=== PATIENT | female | born 1990 | race Two or more races ===

== ENCOUNTER 2018-06-15 14:14 | Emergency (ER) | payer OTHER ==
[~2018-06-15] VITALS: Ht 170.2 cm; Wt 72.6 kg
[2018-06-15 15:39] LABS: BILIRUBIN,URINE NEGATIVE (NEG); CLARITY,URINE CLEAR; COLOR,URINE YELLOW; NITRITE,URINE NEGATIVE (NEG); PH,URINE 6.5; PROTEIN,URINE NEGATIVE (NEG-TRACE); UROBILINOGEN,URINE 0.2 mg/dL (0.2 mg/dL)
[2018-06-15] MEDS ORDERED: FAMOTIDINE 20 MG/2 ML VIAL IVP ONE (15:45)
[2018-06-15] MEDS ORDERED: LIDO:MAALOX 1:1 20 ML SINGLE DOSE. SWSW ONE (15:45)
[2018-06-15 15:48] LABS: BARBITURATES NEG (NEG); BENZODIAZEPINES NEG (NEG); CANNABINOIDS NEG (NEG); COCAINE NEG (NEG); METHADONE NEG (NEG); OPIATES NEG (NEG); PHENCYCLIDINE NEG (NEG)
[2018-06-15 15:54] LABS: AMPHETAMINE/METHAMPHETAMINE NEG (NEG)
[2018-06-15 15:55] LABS: BACTERIA,URINE MODERATE /HPF (0-FEW); RBC,URINE 0 /HPF (0-2); SQUAMOUS EPITHELIAL CELL,UR MOD /LPF
[2018-06-15 16:04] LABS: BASO # 0.1 x10^3/uL (0.0-0.2); BASO % 1 % (0-3); EOS # 0.8 x10^3/uL (0.0-0.7); EOS % 5 % (0-3); HEMATOCRIT 40.5 % (36.0-47.0); HEMOGLOBIN 13.4 g/dL (12.0-15.5); LYMPH % 24 % (24-48); MEAN CORPUSCULAR HEMOGLOBIN 28 pg (25-35); MEAN CORPUSCULAR HGB CONC 33 g/dL (31-37); MEAN CORPUSCULAR VOLUME 85 fL (79-100); MONO # 1.4 x10^3/uL (0.0-1.1); MONO % 8 % (0-9); NEUT # 10.4 x10^3uL (1.8-7.7); NEUT % 63 % (31-73); PLATELET COUNT 440 x10^3/uL (140-400); RED BLOOD COUNT 4.77 x10^6/uL (3.50-5.40); RED CELL DISTRIBUTION WIDTH 13.3 % (11.5-14.5); WHITE BLOOD COUNT 16.7 x10^3/uL (4.0-11.0)
[2018-06-15 16:13] LABS: CALCIUM 8.7 mg/dL (8.5-10.1); CREATININE 0.6 mg/dL (0.6-1.0); GFR 119.9; POTASSIUM 4.1 mmol/L (3.5-5.1)
[2018-06-15 16:19] LABS: ALBUMIN 3.1 g/dL (3.4-5.0); ALBUMIN/GLOBULIN RATIO 0.7 (1.0-1.7); TOTAL BILIRUBIN 0.3 mg/dL (0.2-1.0); TOTAL PROTEIN 7.3 g/dL (6.4-8.2)
--- NOTE | 2018-06-15 16:52 | PHYS DOC ---
Past Medical History Additional Past Medical Histor: gastritis Alcohol Use: Rarely Drug Use: None Adult General Chief Complaint Chief Complaint: ABDOMINAL PAIN HPI HPI Patient is a 27 year old female with a history of gastritis who presents to the ED today complaining of 8 out of 10 epigastric abdominal pain that she states has been going on for 3 days. Patient denies any nausea vomiting. Denies any fever. Denies any hematemesis or melena. Review of Systems Review of Systems Constitutional: Denies fever or chills [] Eyes: Denies change in visual acuity, redness, or eye pain [] HENT: Denies nasal congestion or sore throat [] Respiratory: Denies cough or shortness of breath [] Cardiovascular: No additional information not addressed in HPI [] GI: Reports epigastric abdominal pain, denies nausea, vomiting, bloody stools or diarrhea [] : Denies dysuria or hematuria [] Musculoskeletal: Denies back pain or joint pain [] Integument: Denies rash or skin lesions [] Neurologic: Denies headache, focal weakness or sensory changes [] All other systems were reviewed and found to be within normal limits, except as documented in this note. Current Medications Current Medications Current Medications Medications (Trade) Dose Ordered Sig/Ramesh Start Time Stop Time Status Last Admin Dose Admin Famotidine (Pepcid Vial) 20 mg 1X ONCE 06/15/18 15:45 06/15/18 15:46 DC 06/15/18 15:57 20 MG Info (CONTRAST GIVEN -- Rx MONITORING) 1 each PRN DAILY PRN 06/15/18 17:15 06/17/18 17:14 Iohexol (Omnipaque 300 Mg/ml) 75 ml 1X ONCE 06/15/18 17:15 06/15/18 17:16 DC 06/15/18 17:23 75 ML Multi-Ingredient Mouthwash/Gargle (Gi Cocktail) 20 ml 1X ONCE 06/15/18 15:45 06/15/18 15:46 DC 06/15/18 15:42 20 ML Allergies Allergies Allergies Coded Allergies Type Severity Reaction Last Updated Verified No Known Drug Allergies 06/15/18 No Physical Exam Physical Exam Constitutional: Well developed, well nourished, no acute distress, non-toxic appearance. [] HENT: Normocephalic, atraumatic, bilateral external ears normal, oropharynx moist, no oral exudates, nose normal. [] Eyes: PERRLA, EOMI, conjunctiva normal, no discharge. [] Neck: Normal range of motion, no tenderness, supple, no stridor. [] Cardiovascular:Heart rate regular rhythm, no murmur [] Lungs & Thorax: Bilateral breath sounds clear to auscultation [] Abdomen:Rounded abdomen. Bowel sounds normal, soft, mild tenderness on palpation of the epigastric region, negative mass, slight tenderness on palpation of the right lower quadrant with negative psoas sign, negative obturator sign, no masses, no pulsatile masses. [] Skin: Warm, dry, no erythema, no rash. [] Back: No tenderness, no CVA tenderness. [] Extremities: No tenderness, no cyanosis, no clubbing, ROM intact, no edema. [] Neurologic: Alert and oriented X 3, normal motor function, normal sensory function, no focal deficits noted. [] Psychologic: Affect normal, judgement normal, mood normal. [] Current Patient Data Vital Signs Vital Signs Date Time Temp Pulse Resp B/P (MAP) Pulse Ox O2 Delivery O2 Flow Rate FiO2 06/15/18 18:38 81 17 137/98 (111) 97 Room Air 06/15/18 15:05 98.1 98.1 Lab Values Laboratory Tests Test 06/15/18 15:30 06/15/18 15:31 06/15/18 15:44 Urine Collection Type Unknown Urine Color Yellow Urine Clarity Clear Urine pH 6.5 Urine Specific Stanton 1.025 Urine Protein Negative mg/dL (NEG-TRACE) Urine Glucose (UA) Negative mg/dL (NEG) Urine Ketones (Stick) Negative mg/dL (NEG) Urine Blood Trace (NEG) Urine Nitrite Negative (NEG) Urine Bilirubin Negative (NEG) Urine Urobilinogen Dipstick 0.2 mg/dL (0.2 mg/dL) Urine Leukocyte Esterase Moderate (NEG) Urine RBC 0 /HPF (0-2) Urine WBC 1-4 /HPF (0-4) Urine Squamous Epithelial Cells Mod /LPF Urine Bacteria Moderate /HPF (0-FEW) Urine Mucus Slight /LPF Urine Opiates Screen Neg (NEG) Urine Methadone Screen Neg (NEG) Urine Barbiturates Neg (NEG) Urine Phencyclidine Screen Neg (NEG) Urine Amphetamine/Methamphetamine Neg (NEG) Urine Benzodiazepines Screen Neg (NEG) Urine Cocaine Screen Neg (NEG) Urine Cannabinoids Screen Neg (NEG) Urine Ethyl Alcohol Neg (NEG) POC Urine HCG, Qualitative Hcg negative (Negative) White Blood Count 16.7 x10^3/uL (4.0-11.0) H Red Blood Count 4.77 x10^6/uL (3.50-5.40) Hemoglobin 13.4 g/dL (12.0-15.5) Hematocrit 40.5 % (36.0-47.0) Mean Corpuscular Volume 85 fL (79-100) Mean Corpuscular Hemoglobin 28 pg (25-35) Mean Corpuscular Hemoglobin Concent 33 g/dL (31-37) Red Cell Distribution Width 13.3 % (11.5-14.5) Platelet Count 440 x10^3/uL (140-400) H Neutrophils (%) (Auto) 63 % (31-73) Lymphocytes (%) (Auto) 24 % (24-48) Monocytes (%) (Auto) 8 % (0-9) Eosinophils (%) (Auto) 5 % (0-3) H Basophils (%) (Auto) 1 % (0-3) Neutrophils # (Auto) 10.4 x10^3uL (1.8-7.7) H Lymphocytes # (Auto) 4.0 x10^3/uL (1.0-4.8) Monocytes # (Auto) 1.4 x10^3/uL (0.0-1.1) H Eosinophils # (Auto) 0.8 x10^3/uL (0.0-0.7) H Basophils # (Auto) 0.1 x10^3/uL (0.0-0.2) Sodium Level 138 mmol/L (136-145) Potassium Level 4.1 mmol/L (3.5-5.1) Chloride Level 103 mmol/L (98-107) Carbon Dioxide Level 26 mmol/L (21-32) Anion Gap 9 (6-14) Blood Urea Nitrogen 12 mg/dL (7-20) Creatinine 0.6 mg/dL (0.6-1.0) Estimated GFR (Cockcroft-Gault) 119.9 BUN/Creatinine Ratio 20 (6-20) Glucose Level 136 mg/dL (70-99) H Calcium Level 8.7 mg/dL (8.5-10.1) Total Bilirubin 0.3 mg/dL (0.2-1.0) Aspartate Amino Transferase (AST) 35 U/L (15-37) Alanine Aminotransferase (ALT) 59 U/L (14-59) Alkaline Phosphatase 87 U/L (46-116) Total Protein 7.3 g/dL (6.4-8.2) Albumin 3.1 g/dL (3.4-5.0) L Albumin/Globulin Ratio 0.7 (1.0-1.7) L Lipase 297 U/L (73-393) Ethyl Alcohol Level < 10 mg/dL (0-10) Laboratory Tests 06/15/18 15:44 Laboratory Tests 06/15/18 15:44 EKG EKG [] Radiology/Procedures Radiology/Procedures []PROCEDURE: CT ABD PELV W/ IV CONTRST ONLY CT abdomen and pelvis with contrast Clinical Indication: Abdominal pain COMPARISON: None TECHNIQUE: Multiple contiguous axial images were obtained throughout the abdomen and pelvis with the use of IV contrast. Axial images were reformatted into coronal and sagittal planes. 75 mL Omni 350 was administered. Abdomen findings: Hepatic steatosis. The liver is enlarged measuring 21.6 cm. The gallbladder is mildly contracted but without obvious abnormality. The pancreas is normal in appearance. The spleen is not seen. The bilateral adrenal glands are normal in appearance. The kidneys are unremarkable. There is no significant mesenteric or retroperitoneal adenopathy identified. There is no evidence of free intraperitoneal fluid or pneumoperitoneum. Moderate colonic stool. Visualized portions of the bowel are otherwise grossly unremarkable. Normal appendix. Pelvis findings: The bladder and distal ureters are unremarkable. There is no significant pelvic ascites. No significant iliac or inguinal adenopathy is identified. No acute osseous abnormality. IMPRESSION: 1. Moderate colonic stool. 2. Hepatomegaly with steatosis. 3. The spleen is not identified. There are no surgical clips in its expected location. Correlate with patient's history. Patient may have congenital asplenia. Electronically signed by: Hilario Louis MD (06/15/2018 6:58 PM) [facility] DICTATED and SIGNED BY: HILARIO LOUIS MD DATE: 06/15/18 6386 Course & Med Decision Making Course & Med Decision Making Pertinent Labs and Imaging studies reviewed. (See chart for details) This is a 27-year-old female patient presented to the ED today complaining of abdominal pain, history of gastritis. Negative urine hCG, urine noted for moderate amount of leukocytes, CBC with a WBC of 16.7, CMP with no acute findings. CT of the abdomen and pelvic is negative for any acute findings, noted for constipation. Patient was discharged with MiraLAX, discharged with cephalexin. Given prescription for Nexium for gastritis/acid reflex. Patient states omeprazole is not working for her. Dragon Disclaimer Dragon Disclaimer This electronic medical record was generated, in whole or in part, using a voice recognition dictation system. Departure Departure Impression: Primary Impression: Gastritis Additional Impressions: Urinary tract infection Constipation Disposition: HOME, SELF-CARE Condition: STABLE Referrals: NO PCP (PCP) DOMINGO CASTAÑEDA MD follow up in 1 week Patient Instructions: Constipation, Adult, Gastritis, Adult, [id number], Urinary Tract Infection Additional Instructions: You were evaluated in the emergency room for chronic gastritis, urinary tract infection and constipation. Take the prescribed medications as ordered, ensure you complete your antibiotics. Follow-up with your own doctor in 1-2 weeks. Scripts Polyethylene Glycol 3350 (MIRALAX) 17 Gm Powd.pack 1 PACKET PO DAILY, #30 PACKET 3 Refills Prov: JIMENA FARIA APRN 06/15/18 Esomeprazole Magnesium (NEXIUM CAPSULE) 20 Mg Capsule.dr 1 CAP PO DAILY, #30 CAP 2 Refills Prov: JIMENA FARIA APRN 06/15/18 Cephalexin (CEPHALEXIN) 500 Mg Tablet 1 TAB PO BID, #14 TAB Prov: JIMENA FARIA APRN 06/15/18 Problem Qualifiers Primary Impression: Gastritis Gastritis type: unspecified gastritis Chronicity: chronic Gastritis bleeding: without bleeding Qualified Codes: K29.50 - Unspecified chronic gastritis without bleeding Additional Impressions: Urinary tract infection Urinary tract infection type: site unspecified Hematuria presence: without hematuria Qualified Codes: N39.0 - Urinary tract infection, site not specified Constipation Constipation type: unspecified constipation type Qualified Codes: K59.00 - Constipation, unspecified JIMENA FARIA APRN Jun 15, 2018 16:52
[2018-06-15] MEDS ORDERED: CONTRAST GIVEN. MC PRN (17:15)
[2018-06-15] MEDS ORDERED: IOHEXOL 300 MG/ML 100ML VIAL. IV ONE (17:15)
[2018-06-15 18:38] VITALS: BP 137/98
--- NOTE | 2018-06-15 19:01 | RAD ---
CT abdomen and pelvis with contrast Clinical Indication: Abdominal pain COMPARISON: None TECHNIQUE: Multiple contiguous axial images were obtained throughout the abdomen and pelvis with the use of IV contrast. Axial images were reformatted into coronal and sagittal planes. 75 mL Omni 350 was administered. Abdomen findings: Hepatic steatosis. The liver is enlarged measuring 21.6 cm. The gallbladder is mildly contracted but without obvious abnormality. The pancreas is normal in appearance. The spleen is not seen. The bilateral adrenal glands are normal in appearance. The kidneys are unremarkable. There is no significant mesenteric or retroperitoneal adenopathy identified. There is no evidence of free intraperitoneal fluid or pneumoperitoneum. Moderate colonic stool. Visualized portions of the bowel are otherwise grossly unremarkable. Normal appendix. Pelvis findings: The bladder and distal ureters are unremarkable. There is no significant pelvic ascites. No significant iliac or inguinal adenopathy is identified. No acute osseous abnormality. IMPRESSION: 1. Moderate colonic stool. 2. Hepatomegaly with steatosis. 3. The spleen is not identified. There are no surgical clips in its expected location. Correlate with patient's history. Patient may have congenital asplenia. Electronically signed by: Hilario Wick MD (06/15/2018 6:58 PM) [facility]
[2018-06-15] MEDS ORDERED: ESOM20CA PO (19:25)
[2018-06-15] MEDS ORDERED: CEPH500T PO (19:25)
[2018-06-15] MEDS ORDERED: POLY17PO29 PO (19:25)
== END 2018-06-15 19:29 | disposition home or self-care (01) ==
LOC: ER 14:14
DX: K29.50 Unspecified chronic gastritis without bleeding (principal); N39.0 Urinary tract infection, site not specified; K59.00 Constipation, unspecified
CPT/HCPCS: 36415; 74177; 80053; 80307; 81001; 81025; 83690; 85025; 87086; 96374; 99284; G0480; J3490; Q9967